=== PATIENT | male | born 1960 | race Caucasian/White ===

== ENCOUNTER → 2017-06-27 | Outpatient (CLI) | payer OTHER ==
[2017-06-27 07:49] LABS: HEMATOCRIT 47.1 % (39.2-51.8); HEMOGLOBIN 16.2 g/dL (13.7-18.0); WHITE BLOOD COUNT 5.8 x10^3/uL (3.4-10)
[2017-06-27 08:02] LABS: ASPARTATE AMINO TRANSFERASE 14 U/L (15-37); BLOOD UREA NITROGEN 14 mg/dL (7-18)
[2017-06-28 05:06] LABS: CREATININE URINE 146.3 mg/dL (Not Estab.)
== END ==
LOC: LAB 07:27
PROVIDERS: ATTEND Internal Medicine
DX: Z00.01 Encounter for general adult medical examination with abnormal findings (principal); E11.9 Type 2 diabetes mellitus without complications
CPT/HCPCS: 36415; 80053; 80061; 82043; 82570; 83036; 85025

== ENCOUNTER 2019-06-20 14:49 | Inpatient (IN) | payer OTHER ==
[~2019-06-20] VITALS: Ht 193 cm; Wt 135.9 kg
[2019-06-20] MEDS ORDERED: LIDOCAINE-MPF 1%, 5ML INFIL ONE (16:00)
[2019-06-20] MEDS ORDERED: DIPH,PERTUSS(ACELL),TET VAC/PF 0.5 ML IM-VACC ONE ×2 (16:00→18:17)
[2019-06-20] MEDS ORDERED: MORPHINE SULFATE 4 MG/ML, 1ML IVPush PRN (19:30)
[2019-06-20] MEDS ORDERED: VANCOMYCIN PER PHARMACY MC ONE (19:30)
[2019-06-20] MEDS ORDERED: AMPICILLIN/SULBACTAM 3 GM in SODIUM CHLORIDE 0.9% 100 ML IV ONE (19:30)
[2019-06-20 19:45] LABS: BASOPHILS # (AUTO) 0.03 x10^3/uL (0-0.1); BASOPHILS % (AUTO) 1 % (0-1); EOSINOPHILS % (AUTO) 1 % (1-7); LYMPHOCYTES # (AUTO) 2.09 x10^3/uL (1-3.4); LYMPHOCYTES % (AUTO) 29 % (22-44); MD NO; MEAN CORPUSCULAR HEMOGLOBIN 32.4 pg (27.5-34.5); MEAN CORPUSCULAR HGB CONC 33.9 g/dL (33.2-36.2); MEAN CORPUSCULAR VOLUME 95.5 fL (81-97); MEAN PLATELET VOLUME 8.6 fL (7.4-10.4); MONOCYTES % (AUTO) 6 % (2-9); NEUTROPHILS # (AUTO) 4.51 x10^3/uL (1.8-6.8); NEUTROPHILS % (AUTO) 63 % (42-75); PLATELET COUNT 209 x10^3/uL (130-400); RED BLOOD COUNT 4.83 x10^6/uL (4.38-5.82)
[2019-06-20 19:57] LABS: ALBUMIN 4.1 g/dL (3.4-5.0); ANION GAP 5 mmol/L (5-15); CALCIUM 8.8 mg/dL (8.5-10.1); CHLORIDE 108 mmol/L (98-107); CREATININE 1.12 mg/dL (0.7-1.3)
--- NOTE | 2019-06-20 20:13 | NUR ---
POC IS ADMIT. PIV ESTABLISHED. SECOND BC DRAWN WITH IV START. ABX HUNG. BP/SPO2 MONTIR IN PLACE. PT DENIES NEED FOR PAIN MEDICATIONS AT THIS TIME.
[2019-06-20] MEDS ORDERED: METF500T17 PO (20:20)
[2019-06-20] MEDS ORDERED: GLIP5TAB10 PO (20:20)
[2019-06-20] MEDS ORDERED: POLYETHYLENE GLYCOL 17 GM PACKET PO PRN (21:30)
[2019-06-20] MEDS ORDERED: ONDANSETRON ODT 4 MG PO PRN (21:30)
[2019-06-20] MEDS ORDERED: DOCUSATE 100 MG CAPSULE PO PRN (21:30)
[2019-06-20] MEDS ORDERED: hydrALAzine 20 MG/ML, 1ML IVPush PRN (21:30)
[2019-06-20] MEDS ORDERED: BISACODYL 10 MG SUPP PR PRN (21:30)
[2019-06-20] MEDS ORDERED: ACETAMINOPHEN 325 MG TABLET PO PRN (21:30)
[2019-06-20] MEDS ORDERED: ONDANSETRON 2MG/ML, 2ML IVPush PRN (21:30)
[2019-06-20] MEDS ORDERED: PROMETHAZINE 25 MG/ML, 1ML IM PRN (21:30)
[2019-06-20] MEDS ORDERED: morphine SULFATE 10 MG/ML, 1ML IVPush PRN (21:30)
[2019-06-20] MEDS ORDERED: PHARMACOKINETIC MONITORING MC PRN (22:00)
[2019-06-20] MEDS ORDERED: VANCOMYCIN PER PHARMACY MC PRN (22:00)
[2019-06-20] MEDS ORDERED: VANCOMYCIN PMX 1GM/200ML 200 ML IV ONE (22:00)
[2019-06-20] MEDS: INSULIN LISPRO 100 UNITS/ML, PEN SQ-INSULIN SCH (22:00)
[2019-06-20 22:09] LABS: HCT (SEDRATE) 46.2 % (39.2-51.8)
[2019-06-20 22:13] LABS: C-REACTIVE PROTEIN, QUANT 3.9 mg/dL (0.02-0.49); FREE T4 (FREE THYROXINE) 0.77 ng/dL (0.76-1.46)
[2019-06-20] MEDS ORDERED: VANCOMYCIN 2,000 MG in SODIUM CHLORIDE 0.9% 500 ML IV ONE (22:30)
[2019-06-20 22:33] LABS: HEMOGLOBIN A1C 7.4 % (4.2-6.3)
[2019-06-20] MEDS: HYDROcodone/APAP 5/325 TABLET PO PRN (22:35)
[2019-06-20] MEDS: PIPERACILLIN/TAZO/PMX 3.375GM 50 ML IV SCH (22:45)
[2019-06-20] MEDS: SODIUM CHLORIDE 0.9% 1,000 ML IV SCH (22:45)
[2019-06-20 23:36] VITALS: BP 161/93
[2019-06-21 03:55] VITALS: BP 132/81
[2019-06-21] MEDS: PIPERACILLIN/TAZO/PMX 3.375GM 50 ML IV SCH (04:02)
[2019-06-21 04:49] LABS: BASOPHILS # (AUTO) 0.02 x10^3/uL (0-0.1); BASOPHILS % (AUTO) 0 % (0-1); EOSINOPHILS # (AUTO) 0.15 x10^3/uL (0-0.4); EOSINOPHILS % (AUTO) 2 % (1-7); LYMPHOCYTES # (AUTO) 2.02 x10^3/uL (1-3.4); LYMPHOCYTES % (AUTO) 30 % (22-44); MD NO; MEAN CORPUSCULAR HEMOGLOBIN 32.4 pg (27.5-34.5); MEAN CORPUSCULAR HGB CONC 33.1 g/dL (33.2-36.2); MEAN CORPUSCULAR VOLUME 97.8 fL (81-97); MEAN PLATELET VOLUME 8.9 fL (7.4-10.4); MONOCYTES % (AUTO) 8 % (2-9); NEUTROPHILS # (AUTO) 4.02 x10^3/uL (1.8-6.8); NEUTROPHILS % (AUTO) 60 % (42-75); PLATELET COUNT 184 x10^3/uL (130-400); RED BLOOD COUNT 4.38 x10^6/uL (4.38-5.82); RED CELL DISTRIBUTION WIDTH 13.8 % (9.4-14.8)
[2019-06-21 04:54] LABS: CHLORIDE 112 mmol/L (98-107)
[2019-06-21 05:02] LABS: ALANINE AMINOTRANSFERASE 25 U/L (12-78); ALBUMIN 3.3 g/dL (3.4-5.0); ALKALINE PHOSPHATASE 49 U/L (45-117); ANION GAP 5 mmol/L (5-15); BILIRUBIN,TOTAL 0.6 mg/dL (0.2-1.0); CALCIUM 8.1 mg/dL (8.5-10.1); CHOL/HDL RATIO 7.1; CHOLESTEROL, TOTAL 198 mg/dL (140-239); CREATININE 1.01 mg/dL (0.7-1.3); HDL CHOL % 14 % (26-37); HDL CHOLESTEROL (DIRECT) 28 mg/dL (40-60); LDL CHOLESTEROL,CALCULATED 143 mg/dL (54-169); LDL/HDL RATIO 5.1 (0.5-3.0); TOTAL PROTEIN 6.5 g/dL (6.4-8.2); TRIGLYCERIDES 134 mg/dL (50-200); VLDL CHOLESTEROL 27 mg/dL (0-25)
[2019-06-21 06:57] VITALS: BP 120/82
[2019-06-21] MEDS: INSULIN LISPRO 100 UNITS/ML, PEN SQ-INSULIN SCH ×4 (07:00→20:40)
[2019-06-21] MEDS ORDERED: GADOTERATE 7.5 MMOL/15 ML SYR ONE (08:19)
[2019-06-21] MEDS: FLUTICASONE NASAL SPRAY 16GM NAS SCH ×2 (08:37→20:44)
[2019-06-21] MEDS: SODIUM CHLORIDE 0.9% 1,000 ML IV SCH (11:03)
[2019-06-21] MEDS: AMPICILLIN/SULBACTAM 3 GM in SODIUM CHLORIDE 0.9% 100 ML IV SCH ×3 (11:03→22:41)
[2019-06-21] MEDS: HYDROcodone/APAP 5/325 TABLET PO PRN ×3 (11:42→19:47)
[2019-06-21 13:02] VITALS: BP 132/77
[2019-06-21] MEDS: VANCOMYCIN 2,000 MG in SODIUM CHLORIDE 0.9% 500 ML IV SCH (13:50)
[2019-06-21 18:45] VITALS: BP 130/80
[2019-06-21] MEDS: SIMVASTATIN 40 MG TABLET PO SCH ×2 (20:39→20:45)
[2019-06-22 01:06] VITALS: BP 138/86
[2019-06-22] MEDS: VANCOMYCIN 2,000 MG in SODIUM CHLORIDE 0.9% 500 ML IV SCH ×2 (01:16→13:54)
[2019-06-22] MEDS: AMPICILLIN/SULBACTAM 3 GM in SODIUM CHLORIDE 0.9% 100 ML IV SCH ×4 (05:10→23:35)
[2019-06-22 06:55] VITALS: BP 148/92
[2019-06-22] MEDS: INSULIN LISPRO 100 UNITS/ML, PEN SQ-INSULIN SCH ×4 (07:00→21:27)
[2019-06-22] MEDS: FLUTICASONE NASAL SPRAY 16GM NAS SCH ×2 (09:00→21:00)
[2019-06-22 12:26] VITALS: BP 146/82
[2019-06-22] MEDS: HYDROcodone/APAP 5/325 TABLET PO PRN (15:45)
[2019-06-22 19:51] VITALS: BP 135/82
[2019-06-22] MEDS: SIMVASTATIN 40 MG TABLET PO SCH (21:00)
[2019-06-22] MEDS: VANCOMYCIN 2,500 MG in SODIUM CHLORIDE 0.9% 500 ML IV SCH (21:13)
[2019-06-23 02:10] VITALS: BP 138/81
[2019-06-23] MEDS: AMPICILLIN/SULBACTAM 3 GM in SODIUM CHLORIDE 0.9% 100 ML IV SCH ×3 (05:51→19:38)
[2019-06-23 07:15] VITALS: BP 137/82
[2019-06-23] MEDS: INSULIN LISPRO 100 UNITS/ML, PEN SQ-INSULIN SCH ×4 (07:30→21:16)
[2019-06-23] MEDS: FLUTICASONE NASAL SPRAY 16GM NAS SCH ×2 (08:04→21:00)
[2019-06-23] MEDS: VANCOMYCIN 2,500 MG in SODIUM CHLORIDE 0.9% 500 ML IV SCH ×2 (10:10→21:16)
[2019-06-23 15:01] VITALS: BP 148/89
[2019-06-23 19:41] VITALS: BP 142/84
[2019-06-23] MEDS: SIMVASTATIN 40 MG TABLET PO SCH (21:00)
[2019-06-24] MEDS: AMPICILLIN/SULBACTAM 3 GM in SODIUM CHLORIDE 0.9% 100 ML IV SCH ×2 (01:37→08:45)
[2019-06-24] MEDS: INSULIN LISPRO 100 UNITS/ML, PEN SQ-INSULIN SCH ×2 (07:00→11:00)
[2019-06-24 07:27] VITALS: BP 134/86
[2019-06-24] MEDS: FLUTICASONE NASAL SPRAY 16GM NAS SCH (09:00)
[2019-06-24] MEDS: VANCOMYCIN 2,500 MG in SODIUM CHLORIDE 0.9% 500 ML IV SCH (09:44)
[2019-06-24] MEDS ORDERED: DAPTOMYCIN 800 MG in SODIUM CHLORIDE 0.9% 100 ML IVPB SCH (10:30)
[2019-06-24] MEDS ORDERED: KETO10TA PO (11:18)
[2019-06-24] MEDS ORDERED: ACET325T26 PO (11:18)
[2019-06-24] MEDS ORDERED: ONDA4TAB13 PO (11:18)
[2019-06-24] MEDS ORDERED: DAPT500V3 IV (11:18)
[2019-06-24 13:20] VITALS: BP 152/91
== END 2019-06-24 16:05 | disposition home or self-care (01) | DRG 638 ==
LOC: ED 20:05 → EDIP 20:20 → 3N 21:00 → DCLOUNGE 06-24 15:52
PROVIDERS: ADMIT Family Medicine; ATTEND Internal Medicine
PROC: 02HV33Z Insertion of Infusion Device into Superior Vena Cava, Percutaneous Approach (ICD-10-PCS; principal; 2019-06-24)
PROC: B5181ZA Fluoroscopy of Superior Vena Cava using Low Osmolar Contrast, Guidance (ICD-10-PCS; 2019-06-24)
PROC: B548ZZA Ultrasonography of Superior Vena Cava, Guidance (ICD-10-PCS; 2019-06-24)
DX: E11.69 Type 2 diabetes mellitus with other specified complication (principal); M86.141 Other acute osteomyelitis, right hand; E66.9 Obesity, unspecified; E78.5 Hyperlipidemia, unspecified; L03.011 Cellulitis of right finger; Z83.3 Family history of diabetes mellitus; Z82.49 Family history of ischemic heart disease and other diseases of the circulatory system; Z87.891 Personal history of nicotine dependence; Z90.49 Acquired absence of other specified parts of digestive tract; Z68.36 Body mass index [BMI] 36.0-36.9, adult
CPT/HCPCS: 10060; 36415; 36573; 80048; 80053; 80061; 80202; 82040; 82962; 83036; 83605; 83735; 84439; 84443; 85025; 85651; 86140; 87040; 87070; 87077; 87186; 87205; 90715; G0378; J0295; J0878; J2543; J3370; A9575; C1751; J1815; J7030; J7040